=== PATIENT | male | born 1950 | race American Indian/Alaskan Native ===

== ENCOUNTER 2018-08-04 18:52 | Emergency (ER) | payer MEDICARE ==
[2018-08-04] MEDS ORDERED: ASPIRIN PO ONE (19:11)
--- NOTE | 2018-08-04 19:13 | Emergency Department Report ---
Chief Complaint: Chest Pain Stated Complaint: CHEST PAIN/MAYRA Time Seen by Provider: 08/04/18 19:08 - HPI History of Present Illness: This is a 67 y.o. male that presents with chest pain and SOB for a 1 week. PMH DM, HTN, & Afib. - ROS Review of Systems: SOB and substernal chest pain - Exam Vital Signs: Vital Signs 08/04/18 19:09 Temperature 97.7 F Pulse Rate 78 Respiratory 20 Rate Blood Pressure 157/56 O2 Sat by Pulse 98 Oximetry MSE screening note: Focused history and physical exam performed. Due to findings the following was ordered: labs, ekg, and CXR. ED Disposition for MSE Condition: Stable
[2018-08-04 19:41] LABS: Basophils # (Auto) 0.1 K/mm3 (0.0-0.1); Basophils % (Auto) 1.2 % (0.0-1.8); Eosinophils # (Auto) 0.2 K/mm3 (0.0-0.4); Eosinophils % (Auto) 2.2 % (0.0-4.3); Hematocrit 27.3 % (35.5-45.6); Hemoglobin 8.8 gm/dl (11.8-15.2); Lymphocytes # (Auto) 1.6 K/mm3 (1.2-5.4); Lymphocytes % (Auto) 18.2 % (13.4-35.0); Mean Corpuscular HGB Conc 32 % (32-34); Mean Corpuscular Hemoglobin 23 pg (28-32); Mean Corpuscular Volume 72 fl (84-94); Monocytes # (Auto) 0.8 K/mm3 (0.0-0.8); Monocytes % (Auto) 8.8 % (0.0-7.3); Platelet Count 336 K/mm3 (140-440); Red Blood Count 3.81 M/mm3 (3.65-5.03); Red Cell Distribution Width 19.8 % (13.2-15.2)
[2018-08-04 20:10] LABS: BUN/Creatinine Ratio 12; Blood Urea Nitrogen 13 mg/dL (9-20); Calcium 9.5 mg/dL (8.4-10.2); Hemolysis Index 0
[2018-08-04] MEDS ORDERED: THALITONE PO ONE (21:11)
[2018-08-04] MEDS ORDERED: LASIX IV ONE (21:11)
--- NOTE | 2018-08-04 21:46 | XRay Report ---
PROCEDURE: XR CHEST 1V AP TECHNIQUE: Chest radiograph single view. HISTORY: Chest Pain COMPARISONS: None . FINDINGS: Heart: Normal. Mediastinum/Vessels: Normal. Lungs/Pleural space: Mild vascular congestion. Slight bilateral effusion. Bony thorax: No acute osseous abnormality. Life support devices: None. IMPRESSION: Mild vascular congestion with slight bilateral effusions.. This document is electronically signed by Nery Deng DO., August 04 2018 09:43:50 PM ET
--- NOTE | 2018-08-05 00:49 | Emergency Department Report ---
ED General Adult HPI - General Chief complaint: Chest Pain Stated complaint: CHEST PAIN/MAYRA Time Seen by Provider: 08/04/18 19:08 Source: patient Mode of arrival: Ambulatory Limitations: No Limitations - History of Present Illness Initial comments: Patient is a 67-year-old male past medical history of congestive heart failure who presents with shortness of breath that has been going on for the last couple of days. Patient is complaining of mild chest pain there is a 4 out of 10 as an achy type of pain nothing makes it better and nothing makes it worse. He states that the shortness of breath is worse on exertion and he gets one dated after he walks a couple steps. 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 Patient denies smoking and he denies drinking. Severity scale (0 -10): 0 - Related Data Allergies Allergy/AdvReac Type Severity Reaction Status Date / Time No Known Allergies Allergy Verified 08/06/14 14:23 ED Review of Systems ROS: Stated complaint: CHEST PAIN/MAYRA Other details as noted in HPI Constitutional: denies: chills, fever Eyes: denies: eye pain, eye discharge, vision change ENT: denies: ear pain, throat pain Respiratory: shortness of breath. denies: cough, wheezing Cardiovascular: denies: chest pain, palpitations Endocrine: no symptoms reported Gastrointestinal: denies: abdominal pain, nausea, diarrhea Genitourinary: denies: urgency, dysuria Musculoskeletal: denies: back pain, joint swelling, arthralgia Skin: denies: rash, lesions Neurological: denies: headache, weakness, paresthesias Psychiatric: denies: anxiety, depression Hematological/Lymphatic: denies: easy bleeding, easy bruising ED Past Medical Hx - Past Medical History Hx Hypertension: Yes Hx Diabetes: Yes Additional medical history: AFIB - Surgical History Past Surgical History?: No - Social History Smoking Status: Never Smoker Substance Use Type: None ED Physical Exam - General Limitations: No Limitations General appearance: alert, in no apparent distress - Head Head exam: Present: atraumatic, normocephalic - Eye Eye exam: Present: normal appearance - ENT ENT exam: Present: mucous membranes moist - Neck Neck exam: Present: normal inspection - Respiratory Respiratory exam: Present: normal lung sounds bilaterally. Absent: respiratory distress - Cardiovascular Cardiovascular Exam: Present: regular rate, normal rhythm. Absent: systolic murmur, diastolic murmur, rubs, gallop - GI/Abdominal GI/Abdominal exam: Present: soft, normal bowel sounds - Rectal Rectal exam: Present: deferred - Extremities Exam Extremities exam: Present: normal inspection - Back Exam Back exam: Present: normal inspection - Neurological Exam Neurological exam: Present: alert, oriented X3 - Psychiatric Psychiatric exam: Present: normal affect, normal mood - Skin Skin exam: Present: warm, dry, intact, normal color. Absent: rash ED Course Vital Signs 08/04/18 08/04/18 08/04/18 19:09 20:54 22:47 Temperature 97.7 F Pulse Rate 78 78 Respiratory 20 22 22 Rate Blood Pressure 157/56 Blood Pressure 165/80 [Right] O2 Sat by Pulse 98 98 98 Oximetry ED Medical Decision Making - Lab Data Result diagrams: 08/04/18 19:20 08/04/18 19:20 Lab Results 08/04/18 08/04/18 08/04/18 Range/Units 19:20 19:20 21:32 WBC 8.7 (4.5-11.0) K/mm3 RBC 3.81 (3.65-5.03) M/mm3 Hgb 8.8 L (11.8-15.2) gm/dl Hct 27.3 L (35.5-45.6) % MCV 72 L (84-94) fl MCH 23 L (28-32) pg MCHC 32 (32-34) % RDW 19.8 H (13.2-15.2) % Plt Count 336 (140-440) K/mm3 Lymph % (Auto) 18.2 (13.4-35.0) % Rice % (Auto) 8.8 H (0.0-7.3) % Eos % (Auto) 2.2 (0.0-4.3) % Baso % (Auto) 1.2 (0.0-1.8) % Lymph # 1.6 (1.2-5.4) K/mm3 Rice # 0.8 (0.0-0.8) K/mm3 Eos # 0.2 (0.0-0.4) K/mm3 Baso # 0.1 (0.0-0.1) K/mm3 Seg Neutrophils % 69.6 (40.0-70.0) % Seg Neutrophils # 6.0 (1.8-7.7) K/mm3 Sodium 138 (137-145) mmol/L Potassium 3.5 L (3.6-5.0) mmol/L Chloride 100.3 (98-107) mmol/L Carbon Dioxide 26 (22-30) mmol/L Anion Gap 15 mmol/L BUN 13 (9-20) mg/dL Creatinine 1.1 (0.8-1.5) mg/dL Estimated GFR > 60 ml/min BUN/Creatinine Ratio 12 % Glucose 140 H (75-100) mg/dL Calcium 9.5 (8.4-10.2) mg/dL Troponin T < 0.010 0.016 (0.00-0.029) ng/mL NT-Pro-B Natriuret Pep 1352 H (0-900) pg/mL - EKG Data -: EKG Interpreted by Me - EKG Data EKG shows normal sinus rhythm no ST segment elevation or T wave inversion normal axis and signs of LVH 08/05/18 00:53 - Radiology Data Radiology results: report reviewed, image reviewed Chest x-ray: Shows cardiomegaly and bilateral vascular congestion signs concerning of heart failure exacerbation - Medical Decision Making Chief medical diagnosis: Congestive heart failure exacerbation Differential medical diagnosis: Arrhythmia, pulmonary edema I will get BMP CBC troponin IV Lasix and oral Lasix and aspirin. Patient is feeling better after being diuresed I will send patient home he states that he has enough Lasix pills and he does not need a refill. Discussed plan with patient patient agrees with plan additional verbal discharge instructions were. Critical Care Time: Yes Critical care attestation.: If time is entered above; I have spent that time in minutes in the direct care of this critically ill patient, excluding procedure time. ED Disposition Clinical Impression: SOB (shortness of breath) CHF exacerbation Qualifiers: Heart failure type: unspecified Qualified Code(s): I50.9 - Heart failure, unsp ecified Disposition: -01 TO HOME OR SELFCARE Is pt being admited?: No Does the pt Need Aspirin: No Condition: Stable Instructions: Heart Failure (ED) Referrals: SHANDA GLASGOW MD [Primary Care Provider] - 3-5 Days
[2018-08-05 01:11] VITALS: BP 131/75
== END 2018-08-05 01:12 | disposition home or self-care (01) ==
LOC: ED 18:52
DX: I11.0 Hypertensive heart disease with heart failure (principal); I50.9 Heart failure, unspecified; E11.9 Type 2 diabetes mellitus without complications
CPT/HCPCS: 36415; 71045; 80048; 83880; 84484; 85025; 93005; 93010; 96374; 99284; J1940